=== PATIENT | female | born 1995 | race Caucasian/White ===

== ENCOUNTER 2023-08-19 08:14 | Emergency (ER) | payer BC ==
[2023-08-19] MEDS ORDERED: Ondansetron 4 MG/2 ML SDV IVPUSH ONE (08:53)
[2023-08-19] MEDS ORDERED: Sodium Chloride 0.9% 1,000 ML IV STA (08:53)
[2023-08-19] MEDS ORDERED: Sodium Chloride 0.9% 10 ML Syringe FLUSH PRN (08:53)
[2023-08-19] MEDS ORDERED: Acetaminophen/Butalbital/Caffeine 325-50-40 MG Tab PO ONE (08:56)
[2023-08-19 09:30] LABS: BASOPHILS PERCENT AUTO 0.3 % (0.0-1.0); EOSINOPHILS ABSOLUTE AUTO 0.1 K/mm3 (0.0-0.4); EOSINOPHILS PERCENT AUTO 0.8 % (0.0-6.0); HEMATOCRIT 40.6 % (37.0-47.0); HEMOGLOBIN 14.3 gm/dl (12.0-16.0); IMMATURE GRAN ABSOLUTE AUTO 0.03 K/mm3 (0.00-0.05); IMMATURE GRAN PERCENT AUTO 0.3 % (0.0-0.4); LYMPHOCYTES ABSOLUTE AUTO 2.8 K/mm3 (1.0-4.8); LYMPHOCYTES PERCENT AUTO 28.8 % (24.0-44.0); MEAN CORPUSCULAR HEMOGLOBIN 29.3 pg (28.0-32.0); MEAN CORPUSCULAR HGB CONC 35.2 g/dl (32.0-36.0); MEAN CORPUSCULAR VOLUME 83.2 fl (83.0-99.0); MEAN PLATELET VOLUME 8.7 fl (9.4-12.3); MONOCYTES ABSOLUTE AUTO 0.7 K/mm3 (0.0-0.8); MONOCYTES PERCENT AUTO 7.3 % (0.0-8.0); NEUTROPHILS PERCENT AUTO 62.5 % (41.0-71.0); PLATELET COUNT,PLT 269 K/mm3 (150-400); RED BLOOD CELL COUNT 4.88 M/mm3 (4.10-5.30); WHITE BLOOD CELL COUNT,WBC 9.57 K/mm3 (3.9-11.3)
[2023-08-19 09:46] LABS: ALBUMIN 3.8 g/dl (3.4-5.0); ANION GAP 13.7 (5-15); BILIRUBIN TOTAL 0.4 mg/dL (0.2-1.0); CALCIUM 9.3 mg/dL (8.5-10.1); CREATININE 0.8 mg/dL (0.55-1.02); EST CRCL DRUG DOSING (CG) 109.41 mL/min; POTASSIUM,K 3.7 mEq/L (3.5-5.1); PROTEIN TOTAL,TP 7.6 g/dl (6.4-8.2)
[2023-08-19] MEDS ORDERED: Sodium Chloride 0.9% 1,000 ML IV ONE (11:01)
== END 2023-08-19 13:20 | disposition home or self-care (01) ==
LOC: JD.ED 08:14
DX: G97.1 Other reaction to spinal and lumbar puncture (principal); I10 Essential (primary) hypertension; Z88.0 Allergy status to penicillin
CPT/HCPCS: 36415; 62272; 80053; 85025; 96361; 96374; 99284; A9270; J2405; J3490; J7030

== ENCOUNTER 2024-02-17 16:27 | Emergency (ER) | payer BC ==
[2024-02-17 17:47] LABS: APPEARANCE,URINE CLEAR (Clear); BILIRUBIN,URINE NEGATIVE (Negative); COLOR,URINE LIGHT YELLOW (Yellow); GLUCOSE,URINE NEGATIVE (Negative); KETONES,URINE NEGATIVE (Negative); LEUKOCYTE ESTERASE,URINE NEGATIVE (Negative); NITRITE,URINE NEGATIVE (Negative); OCCULT BLOOD,URINE NEGATIVE (Negative); PROTEIN,URINE NEGATIVE (Negative); UROBILINOGEN,URINE 0.2 (0.2-1.0)
[2024-02-17 18:01] LABS: BASOPHILS PERCENT AUTO 0.2 % (0.0-1.0); EOSINOPHILS ABSOLUTE AUTO 0.2 K/mm3 (0.0-0.4); EOSINOPHILS PERCENT AUTO 1.8 % (0.0-6.0); HEMATOCRIT 33.6 % (37.0-47.0); HEMOGLOBIN 11.6 gm/dl (12.0-16.0); IMMATURE GRAN ABSOLUTE AUTO 0.04 K/mm3 (0.00-0.05); IMMATURE GRAN PERCENT AUTO 0.4 % (0.0-0.4); LYMPHOCYTES ABSOLUTE AUTO 2.7 K/mm3 (1.0-4.8); LYMPHOCYTES PERCENT AUTO 26.4 % (24.0-44.0); MEAN CORPUSCULAR HEMOGLOBIN 29.7 pg (28.0-32.0); MEAN CORPUSCULAR HGB CONC 34.5 g/dl (32.0-36.0); MEAN CORPUSCULAR VOLUME 85.9 fl (83.0-99.0); MEAN PLATELET VOLUME 8.4 fl (9.4-12.3); MONOCYTES ABSOLUTE AUTO 0.7 K/mm3 (0.0-0.8); MONOCYTES PERCENT AUTO 6.7 % (0.0-8.0); NEUTROPHILS ABSOLUTE AUTO 6.6 K/mm3 (1.8-7.7); NEUTROPHILS PERCENT AUTO 64.5 % (41.0-71.0); PLATELET COUNT,PLT 219 K/mm3 (150-400); RED BLOOD CELL COUNT 3.91 M/mm3 (4.10-5.30); WHITE BLOOD CELL COUNT,WBC 10.21 K/mm3 (3.9-11.3)
[2024-02-17 18:26] LABS: BACTERIA,URINE FEW /hpf (FEW); MUCUS,URINE FEW /hpf (FEW); RBC,URINE 0-5 /hpf (0-5); SQUAMOUS EPITHELIAL CELLS,UR 0-5 /hpf (0-5); WBC,URINE 0-5 /hpf (0-5)
[2024-02-17 18:31] LABS: A/G RATIO 0.9 (1-2); ANION GAP 16.7 (5-15); BILIRUBIN TOTAL 0.2 mg/dL (0.2-1.0); BUN/CREATININE RATIO 11.7 (14-18); CALCIUM 9.2 mg/dL (8.5-10.1); CREATININE 0.6 mg/dL (0.55-1.02); EST CRCL DRUG DOSING (CG) 140.82 mL/min; MAGNESIUM 1.6 mg/dL (1.8-2.4); POTASSIUM,K 3.7 mEq/L (3.5-5.1); PROTEIN TOTAL,TP 6.4 g/dl (6.4-8.2)
== END 2024-02-17 19:03 | disposition home or self-care (01) ==
LOC: JD.ED 16:27
DX: O26.891 Other specified pregnancy related conditions, first trimester (principal); R60.0 Localized edema; I10 Essential (primary) hypertension; Z3A.13 13 weeks gestation of pregnancy; Z86.16 Personal history of COVID-19; Z88.0 Allergy status to penicillin
CPT/HCPCS: 36415; 80053; 81001; 83735; 85025; 85379; 93971-26-LT; 93971-LT; 99284

== ENCOUNTER 2024-08-14 17:32 | Inpatient (IN) | payer BC ==
[~2024-08-14 17:32] MED LIST: Ropivacaine 0.2% PF 2 MG/ML 20 ML SDV ONE
[2024-08-14] MEDS ORDERED: Lidocaine 1% 50 ML MDV INJECT PRN (18:36)
[2024-08-14] MEDS ORDERED: Nalbuphine 10 MG/1 ML Vial IVPUSH PRN (18:36)
[2024-08-14] MEDS ORDERED: Sodium Chloride 0.9% 10 ML Syringe FLUSH PRN (18:36)
[2024-08-14] MEDS ORDERED: Ondansetron 4 MG/2 ML SDV IVPUSH PRN (18:36)
[2024-08-14] MEDS ORDERED: Oxytocin/0.9 % Sodium Chloride 30 UNIT/500 ML BAG IV SCH (18:45)
[2024-08-14 19:03] LABS: BASOPHILS PERCENT AUTO 0.3 % (0.0-1.0); EOSINOPHILS ABSOLUTE AUTO 0.1 K/mm3 (0.0-0.4); EOSINOPHILS PERCENT AUTO 0.7 % (0.0-6.0); HEMATOCRIT 32.4 % (37.0-47.0); HEMOGLOBIN 11.2 gm/dl (12.0-16.0); IMMATURE GRAN ABSOLUTE AUTO 0.06 K/mm3 (0.00-0.05); IMMATURE GRAN PERCENT AUTO 0.6 % (0.0-0.4); LYMPHOCYTES ABSOLUTE AUTO 2.6 K/mm3 (1.0-4.8); LYMPHOCYTES PERCENT AUTO 25.1 % (24.0-44.0); MEAN CORPUSCULAR HEMOGLOBIN 29.2 pg (28.0-32.0); MEAN CORPUSCULAR HGB CONC 34.6 g/dl (32.0-36.0); MEAN CORPUSCULAR VOLUME 84.6 fl (83.0-99.0); MEAN PLATELET VOLUME 8.8 fl (9.4-12.3); MONOCYTES ABSOLUTE AUTO 0.7 K/mm3 (0.0-0.8); MONOCYTES PERCENT AUTO 7.2 % (0.0-8.0); NEUTROPHILS ABSOLUTE AUTO 6.7 K/mm3 (1.8-7.7); NEUTROPHILS PERCENT AUTO 66.1 % (41.0-71.0); PLATELET COUNT,PLT 227 K/mm3 (150-400); RED BLOOD CELL COUNT 3.83 M/mm3 (4.10-5.30); WHITE BLOOD CELL COUNT,WBC 10.14 K/mm3 (3.9-11.3)
[2024-08-14 19:23] LABS: ALANINE AMINOTRANSFERASE,ALT 14 U/L (14-59); ASPARTATE AMNIOTRANSFERASE,AST 10 U/L (15-37); BLOOD UREA NITROGEN,BUN 6 mg/dL (7-18); CREATININE 0.7 mg/dL (0.55-1.02); ESTIMATED GFR 120 mL/min (>60); LACTATE DEHYDROGENASE,LDH 179 U/L (81-234); URIC ACID 4.6 mg/dL (2.6-6.0)
[2024-08-14 19:36] LABS: APPEARANCE,URINE CLEAR (Clear); BILIRUBIN,URINE NEGATIVE (Negative); COLOR,URINE LIGHT YELLOW (Yellow); GLUCOSE,URINE NEGATIVE (Negative); KETONES,URINE NEGATIVE (Negative); LEUKOCYTE ESTERASE,URINE NEGATIVE (Negative); NITRITE,URINE NEGATIVE (Negative); OCCULT BLOOD,URINE NEGATIVE (Negative); PROTEIN,URINE NEGATIVE (Negative); UROBILINOGEN,URINE 0.2 (0.2-1.0)
[2024-08-14 19:59] LABS: CREATININE,URINE RAND 19.1 mg/dL (30.0-125.0)
[2024-08-14 20:00] LABS: PROTEIN,URINE RANDOM < 6.0 mg/dL (0.0-11.8)
[2024-08-14] MEDS: Misoprostol 25 MCG (1/4 of 100 MCG) Tab VAG PRN (20:56)
[2024-08-15] MEDS: Sodium Chloride 0.9% 10 ML Syringe FLUSH SCH (01:05)
[2024-08-15] MEDS: Misoprostol 25 MCG (1/4 of 100 MCG) Tab VAG ONE (01:06)
[2024-08-15] MEDS: Lactated Ringers 1,000 ML IV SCH (15:14)
[2024-08-15] MEDS ORDERED: diphenhydrAMINE 50 MG/ML SDV IVPUSH PRN (15:29)
[2024-08-15] MEDS ORDERED: ePHEDrine 50 MG/ML SDV IVPUSH PRN (15:29)
[2024-08-15] MEDS: fentaNYL 100 MCG/2 ML SDV EPIDUR PRN (15:48)
[2024-08-15] MEDS: Bupivacaine/fentaNYL/NS 100 ML Bag EPIDUR PRN (15:48)
[2024-08-15] MEDS: Oxytocin/0.9 % Sodium Chloride 30 UNIT/500 ML BAG IV SCH (20:25)
[2024-08-16 04:59] LABS: BASOPHILS PERCENT AUTO 0.1 % (0.0-1.0); EOSINOPHILS PERCENT AUTO 0.1 % (0.0-6.0); HEMOGLOBIN 11.2 gm/dl (12.0-16.0); IMMATURE GRAN PERCENT AUTO 0.5 % (0.0-0.4); LYMPHOCYTES ABSOLUTE AUTO 1.8 K/mm3 (1.0-4.8); LYMPHOCYTES PERCENT AUTO 9.4 % (24.0-44.0); MEAN CORPUSCULAR HGB CONC 33.9 g/dl (32.0-36.0); MEAN CORPUSCULAR VOLUME 85.5 fl (83.0-99.0); MEAN PLATELET VOLUME 8.9 fl (9.4-12.3); MONOCYTES ABSOLUTE AUTO 1.4 K/mm3 (0.0-0.8); MONOCYTES PERCENT AUTO 7.3 % (0.0-8.0); NEUTROPHILS ABSOLUTE AUTO 15.6 K/mm3 (1.8-7.7); NEUTROPHILS PERCENT AUTO 82.6 % (41.0-71.0); PLATELET COUNT,PLT 196 K/mm3 (150-400); RED BLOOD CELL COUNT 3.86 M/mm3 (4.10-5.30); WHITE BLOOD CELL COUNT,WBC 18.91 K/mm3 (3.9-11.3)
[2024-08-16] MEDS ORDERED: Ampicillin 2 GM in Sodium Chloride 0.9% 100 ML IV SCH (05:00)
[2024-08-16] MEDS: ceFAZolin 2 GM in Sodium Chloride 0.9% 50 ML IV SCH (05:14)
[2024-08-16] MEDS: Acetaminophen 325 MG Tab PO PRN (05:20)
[2024-08-16 05:22] LABS: A/G RATIO 0.6 (1-2); ALBUMIN 2.3 g/dl (3.4-5.0); ANION GAP 15.7 (5-15); BILIRUBIN TOTAL 0.3 mg/dL (0.2-1.0); CALCIUM 9.1 mg/dL (8.5-10.1); CREATININE 0.7 mg/dL (0.55-1.02); EST CRCL DRUG DOSING (CG) 119.62 mL/min; POTASSIUM,K 3.7 mEq/L (3.5-5.1); PROTEIN TOTAL,TP 6.1 g/dl (6.4-8.2)
[2024-08-16] MEDS ORDERED: Lactated Ringers 1,000 ML IV SCH (06:30)
[2024-08-16] MEDS ORDERED: Lidocaine 2% with EPINEPHrine 1:200,000 20 ML SDV ONE (06:50)
[2024-08-16] MEDS ORDERED: ceFAZolin 2 GM Vial ONE ×2 (06:50→07:19)
[2024-08-16] MEDS ORDERED: Ondansetron 4 MG/2 ML SDV ONE (06:51)
[2024-08-16] MEDS ORDERED: Phenylephrine 1% 10 MG/ML SDV ONE (06:51)
[2024-08-16] MEDS ORDERED: dexmedeTOMIDine HCl 200 MCG/2 ML SDV ONE (06:51)
[2024-08-16] MEDS ORDERED: fentaNYL 100 MCG/2 ML SDV ONE (06:53)
[2024-08-16] MEDS: Citric Acid/Sodium Citrate Solution 30 ML Cup PO ONE (06:55)
[2024-08-16] MEDS: Metoclopramide 10 MG/2 ML SDV IVPUSH ONE (07:07)
[2024-08-16] MEDS: Azithromycin 500 MG in Sodium Chloride 0.9% 250 ML IV ONE (07:09)
[2024-08-16] MEDS ORDERED: Dexamethasone 4 MG/ML SDV ONE (07:36)
[2024-08-16] MEDS ORDERED: Ketorolac 30 MG/ML SDV ONE (07:49)
[2024-08-16] MEDS ORDERED: Morphine PF 10 MG/10 ML SDV ONE (07:56)
[2024-08-16] MEDS ORDERED: Naloxone 0.4 MG/ML SDV IVPUSH PRN (08:47)
[2024-08-16] MEDS ORDERED: diphenhydrAMINE 50 MG/ML SDV IVPUSH PRN (08:47)
[2024-08-16] MEDS ORDERED: ePHEDrine 50 MG/ML SDV IVPUSH PRN (08:47)
[2024-08-16] MEDS ORDERED: Sennosides 8.6 MG Tab PO PRN (08:47)
[2024-08-16] MEDS: Acetaminophen 325 MG Tab PO SCH (10:09)
[2024-08-16] MEDS: Dextrose 5%-Lactated Ringers 1,000 ML IV SCH (10:09)
[2024-08-16] MEDS: Ibuprofen 800 MG Tab PO SCH (14:54)
[2024-08-16] MEDS: Prenatal Multivitamin with Calcium/Folic Acid/Iron Tab PO SCH (17:58)
[2024-08-16] MEDS: Docusate Sodium 100 MG Cap PO SCH (17:58)
[2024-08-17 05:31] LABS: BASOPHILS PERCENT AUTO 0.2 % (0.0-1.0); EOSINOPHILS PERCENT AUTO 0.1 % (0.0-6.0); HEMATOCRIT 26.2 % (37.0-47.0); IMMATURE GRAN ABSOLUTE AUTO 0.21 K/mm3 (0.00-0.05); IMMATURE GRAN PERCENT AUTO 1.1 % (0.0-0.4); LYMPHOCYTES ABSOLUTE AUTO 3.2 K/mm3 (1.0-4.8); LYMPHOCYTES PERCENT AUTO 16.8 % (24.0-44.0); MEAN CORPUSCULAR HEMOGLOBIN 29.1 pg (28.0-32.0); MEAN CORPUSCULAR VOLUME 85.6 fl (83.0-99.0); MONOCYTES ABSOLUTE AUTO 1.4 K/mm3 (0.0-0.8); MONOCYTES PERCENT AUTO 7.1 % (0.0-8.0); NEUTROPHILS ABSOLUTE AUTO 14.1 K/mm3 (1.8-7.7); NEUTROPHILS PERCENT AUTO 74.7 % (41.0-71.0); PLATELET COUNT,PLT 200 K/mm3 (150-400); RED BLOOD CELL COUNT 3.06 M/mm3 (4.10-5.30); WHITE BLOOD CELL COUNT,WBC 18.92 K/mm3 (3.9-11.3)
[2024-08-17 05:32] LABS: HEMOGLOBIN 8.9 gm/dl (12.0-16.0)
[2024-08-17] MEDS: oxyCODONE 5 MG Tab PO PRN (05:38)
[2024-08-17] MEDS: ceFAZolin 2 GM in Sodium Chloride 0.9% 100 ML IV ONE (05:43)
[2024-08-17] MEDS: Clindamycin Phosphate in D5W 900 MG in Premix Bag 1 BAG IV ONE (05:43)
[2024-08-18] MEDS ORDERED: Labetalol 100 MG Tab PO SCH (09:00)
== END 2024-08-18 11:44 | disposition home or self-care (01) | DRG 540 ==
LOC: JD.OBCHECK 17:32 → JD.OB 17:34 → JD.OBCHECK 18:36 → JD.OB 18:58 → OBSVTOIN 18:58 → JD.OB 08-16 08:11
PROVIDERS: ADMIT Obstetrics & Gynecology; ATTEND Obstetrics & Gynecology
PROC: 3E0R3BZ Introduction of Anesthetic Agent into Spinal Canal, Percutaneous Approach (ICD-10-PCS; 2024-08-16)
PROC: 00HU33Z Insertion of Infusion Device into Spinal Canal, Percutaneous Approach (ICD-10-PCS; 2024-08-16)
PROC: 10H07YZ Insertion of Other Device into Products of Conception, Via Natural or Artificial Opening (ICD-10-PCS; 2024-08-16)
PROC: 10907ZC Drainage of Amniotic Fluid, Therapeutic from Products of Conception, Via Natural or Artificial Opening (ICD-10-PCS; 2024-08-16)
PROC: 10D00Z1 Extraction of Products of Conception, Low, Open Approach (ICD-10-PCS; 2024-08-16)
PROC: 10D00Z1 Extraction of Products of Conception, Low, Open Approach (ICD-10-PCS; principal; 2024-08-16 07:15)
PROC: 3E0334Z Introduction of Serum, Toxoid and Vaccine into Peripheral Vein, Percutaneous Approach (ICD-10-PCS; 2024-08-17)
DX: O13.4 Gestational [pregnancy-induced] hypertension without significant proteinuria, complicating childbirth (principal); O41.1230 Chorioamnionitis, third trimester, not applicable or unspecified; D62 Acute posthemorrhagic anemia; O99.214 Obesity complicating childbirth; O98.52 Other viral diseases complicating childbirth; B00.9 Herpesviral infection, unspecified; O26.893 Other specified pregnancy related conditions, third trimester; O76 Abnormality in fetal heart rate and rhythm complicating labor and delivery; E66.01 Morbid (severe) obesity due to excess calories; O90.81 Anemia of the puerperium; O69.81X0 Labor and delivery complicated by cord around neck, without compression, not applicable or unspecified; O62.1 Secondary uterine inertia; Z3A.38 38 weeks gestation of pregnancy; Z37.0 Single live birth; Z86.16 Personal history of COVID-19; Z67.11 Type A blood, Rh negative; Z88.0 Allergy status to penicillin
CPT/HCPCS: 01967; 01968; 36415; 51702; 59025; 80053; 81003; 82565; 82570; 83605; 83615; 84156; 84450; 84460; 84520; 84550; 85025; 85461; 86592; 86850; 86900; 86901; A9270-GY; J0456; J0690; J1100; J1580; J1885; J2274; J2371; J2405; J2765; J2791; J2795; J3010; J3490; J7050; J7120; J7121; J7999

== ENCOUNTER 2024-08-21 17:35 | Emergency (ER) | payer BC ==
[2024-08-21] MEDS ORDERED: Sodium Chloride 0.9% 10 ML Syringe FLUSH PRN (19:16)
[2024-08-21 19:30] LABS: BASOPHILS ABSOLUTE AUTO 0.1 K/mm3 (0.0-0.2); BASOPHILS PERCENT AUTO 0.6 % (0.0-1.0); EOSINOPHILS ABSOLUTE AUTO 0.4 K/mm3 (0.0-0.4); HEMATOCRIT 29.6 % (37.0-47.0); HEMOGLOBIN 9.9 gm/dl (12.0-16.0); IMMATURE GRAN PERCENT AUTO 2.1 % (0.0-0.4); LYMPHOCYTES ABSOLUTE AUTO 2.6 K/mm3 (1.0-4.8); LYMPHOCYTES PERCENT AUTO 26.8 % (24.0-44.0); MEAN CORPUSCULAR HEMOGLOBIN 28.9 pg (28.0-32.0); MEAN CORPUSCULAR HGB CONC 33.4 g/dl (32.0-36.0); MEAN CORPUSCULAR VOLUME 86.3 fl (83.0-99.0); MEAN PLATELET VOLUME 8.4 fl (9.4-12.3); MONOCYTES ABSOLUTE AUTO 0.7 K/mm3 (0.0-0.8); MONOCYTES PERCENT AUTO 6.9 % (0.0-8.0); NEUTROPHILS ABSOLUTE AUTO 5.8 K/mm3 (1.8-7.7); NEUTROPHILS PERCENT AUTO 59.6 % (41.0-71.0); PLATELET COUNT,PLT 285 K/mm3 (150-400); RED BLOOD CELL COUNT 3.43 M/mm3 (4.10-5.30); WHITE BLOOD CELL COUNT,WBC 9.67 K/mm3 (3.9-11.3)
[2024-08-21 19:42] LABS: APPEARANCE,URINE CLEAR (Clear); BILIRUBIN,URINE NEGATIVE (Negative); COLOR,URINE YELLOW (Yellow); GLUCOSE,URINE NEGATIVE (Negative); KETONES,URINE NEGATIVE (Negative); LEUKOCYTE ESTERASE,URINE NEGATIVE (Negative); NITRITE,URINE NEGATIVE (Negative); OCCULT BLOOD,URINE 2+ (Negative); PH,URINE 6.5 (5.0-8.0); PROTEIN,URINE NEGATIVE (Negative); UROBILINOGEN,URINE 0.2 (0.2-1.0)
[2024-08-21 19:50] LABS: A/G RATIO 0.7 (1-2); ALBUMIN 2.7 g/dl (3.4-5.0); ANION GAP 14.4 (5-15); BILIRUBIN TOTAL 0.2 mg/dL (0.2-1.0); BUN/CREATININE RATIO 16.3 (14-18); CALCIUM 9.4 mg/dL (8.5-10.1); CREATININE 0.8 mg/dL (0.55-1.02); EST CRCL DRUG DOSING (CG) 104.67 mL/min; MAGNESIUM 1.6 mg/dL (1.8-2.4); POTASSIUM,K 3.4 mEq/L (3.5-5.1); PROTEIN TOTAL,TP 6.5 g/dl (6.4-8.2)
[2024-08-21 19:51] LABS: BACTERIA,URINE FEW /hpf (FEW); MUCUS,URINE FEW /hpf (FEW); SQUAMOUS EPITHELIAL CELLS,UR 0-5 /hpf (0-5); WBC,URINE 0-5 /hpf (0-5)
[2024-08-21 20:00] LABS: CREATININE,URINE RAND 77.5 mg/dL (30.0-125.0); PROTEIN CREATININE RATIO,URINE 103.2 mg/g (0-149)
[2024-08-21] MEDS: Labetalol 100 MG/20 ML MDV IVPUSH ONE (22:46)
== END 2024-08-21 23:05 | disposition home or self-care (01) ==
LOC: JD.ED 17:35
DX: O16.5 Unspecified maternal hypertension, complicating the puerperium (principal); Z86.16 Personal history of COVID-19; Z79.899 Other long term (current) drug therapy; Z88.0 Allergy status to penicillin
CPT/HCPCS: 36415; 71045; 80053; 81001; 82570; 83615; 83735; 84156; 85025; 96374; 99284; J1920

== ENCOUNTER 2025-07-09 11:29 | Emergency (ER) | payer BC, OTHER ==
[2025-07-09 12:14] LABS: BASOPHILS ABSOLUTE AUTO 0.1 K/mm3 (0.0-0.2); BASOPHILS PERCENT AUTO 0.5 % (0.0-1.0); EOSINOPHILS ABSOLUTE AUTO 0.2 K/mm3 (0.0-0.4); EOSINOPHILS PERCENT AUTO 1.5 % (0.0-6.0); IMMATURE GRAN ABSOLUTE AUTO 0.12 K/mm3 (0.00-0.05); IMMATURE GRAN PERCENT AUTO 1.0 % (0.0-0.4); LYMPHOCYTES ABSOLUTE AUTO 3.7 K/mm3 (1.0-4.8); LYMPHOCYTES PERCENT AUTO 29.5 % (24.0-44.0); MEAN PLATELET VOLUME 8.9 fl (9.4-12.3); MONOCYTES ABSOLUTE AUTO 0.9 K/mm3 (0.0-0.8); MONOCYTES PERCENT AUTO 6.8 % (0.0-8.0); NEUTROPHILS ABSOLUTE AUTO 7.7 K/mm3 (1.8-7.7); NEUTROPHILS PERCENT AUTO 60.7 % (41.0-71.0); NRBC ABSOLUTE 0.00 (0.00-0.02); NRBC PERCENT 0.0 % (0.0-0.2); PLATELET COUNT,PLT 306 K/mm3 (150-400); RED BLOOD CELL COUNT 4.91 M/mm3 (4.10-5.30); WHITE BLOOD CELL COUNT,WBC 12.59 K/mm3 (3.9-11.3)
[2025-07-09 12:58] LABS: A/G RATIO 1.0 (1-2); ALANINE AMINOTRANSFERASE,ALT 20.0 U/L (14-59); ASPARTATE AMNIOTRANSFERASE,AST 10.0 U/L (15-37); BILIRUBIN TOTAL 0.3 mg/dL (0.2-1.0); BLOOD UREA NITROGEN,BUN 16.0 mg/dL (7-18); CARBON DIOXIDE,CO2 21.0 mEq/L (21-32); CHLORIDE,CL 110.0 mEq/L (98-107); CHOLESTEROL HDL 28.0 mg/dL (40-59); CHOLESTEROL LDL DIRECT 106.0 mg/dL (<100); CHOLESTEROL TOTAL 177.0 mg/dL (<200); CREATINE KINASE,CK 42.0 U/L (26-192); CREATININE 0.8 mg/dL (0.55-1.02); EST CRCL DRUG DOSING (CG) 103.73 mL/min; ESTIMATED GFR 102.0 mL/min (>60); GLUCOSE RANDOM 132.0 mg/dL (70-99); POTASSIUM,K 3.4 mEq/L (3.5-5.1); PROTEIN TOTAL,TP 7.0 g/dl (6.4-8.2); SODIUM,NA 140.0 mEq/L (136-145); TROPONIN I HIGH SENSITIVITY 4.0 pg/mL (<=51); TSH 6.572 uIU/mL (0.358-3.74)
[2025-07-09 13:27] LABS: T4 FREE 0.99 ng/dL (0.76-1.46)
[2025-07-09 13:45] LABS: BUPRENORPHINE SCREEN,URINE NEGATIVE (CUTOFF=10); METHADONE SCREEN, URINE NEGATIVE (CUTOFF=200); METHAMPHETAMINES SCREEN, URINE NEGATIVE (CUTOFF=500); OXYCODONE SCREEN,URINE NEGATIVE (CUT0FF=100); THC SCREEN,URINE 20 NG/ML NEGATIVE (CUTOFF=50)
[2025-07-09 13:48] LABS: AMPHETAMINES SCREEN, URINE NEGATIVE (CUTOFF=500)
== END 2025-07-09 15:10 | disposition home or self-care (01) ==
LOC: JD.ED 11:29
DX: R07.89 Other chest pain (principal); B34.9 Viral infection, unspecified; I10 Essential (primary) hypertension; Z88.0 Allergy status to penicillin; Z79.899 Other long term (current) drug therapy; Z86.16 Personal history of COVID-19
CPT/HCPCS: 36415; 71045; 80053; 80061; 80306; 82550; 83036; 83690; 83735; 83880; 84439; 84443; 84484; 84703; 85025; 85379; 87428; 93005; 99285; J7620; A9270-GY